=== PATIENT | male | born 1990 | race Two or more races ===

== ENCOUNTER 2023-01-06 16:39 | Emergency (ER) | payer MEDICAID, OTHER ==
[~2023-01-06] VITALS: Ht 175.3 cm; Wt 72.6 kg
[2023-01-06 16:49] VITALS: BP 153/81; PULSE 94; RESP 18; TEMP 98.1; O2SAT 100
[2023-01-06] MEDS ORDERED: IBUPROFEN 600 MG TAB PO ONE (17:45)
[2023-01-06] MEDS ORDERED: cephALEXin 500 MG CAP PO ONE (17:45)
[2023-01-06] MEDS ORDERED: BACITRACIN OINT 500 UNITS/GM PKT TP ONE (17:45)
[2023-01-06] MEDS ORDERED: CEPH-588 PO (17:47)
[2023-01-06] MEDS ORDERED: IBUP-1842 PO (17:47)
[2023-01-06 18:06] VITALS: BP 153/81; PULSE 94; RESP 18; TEMP 98.1; O2SAT 100
== END 2023-01-06 18:05 | disposition home or self-care (01) ==
LOC: MED 16:39
DX: L02.512 Cutaneous abscess of left hand (principal); L02.511 Cutaneous abscess of right hand; Z79.899 Other long term (current) drug therapy
CPT/HCPCS: 90471; 90715; 99284